=== PATIENT | male | born 1945 | race Caucasian/White ===

== ENCOUNTER → 2018-07-11 | Outpatient (CLI) | payer MEDICARE ==
--- NOTE | 2018-07-11 12:39 | CONS ---
CONSULTATION DATE OF SERVICE: 07/11/2018 This 73-year-old gentleman has been evaluated in sleep center for obstructive sleep apnea-hypopnea syndrome. HISTORY OF PRESENT ILLNESS/SLEEP WAKE EVALUATION: The patient had home sleep test about 2 years ago in another institution. According to family, apnea-hypopnea index was in the range of 7 and he was not recommended to start CPAP therapy at that time. Presently, patient continued to have loud snoring and has multiple awakenings from sleep up to 3 times with once of nocturia. Sometimes he sleeps with open mouth. His usual sleep schedule from midnight until 8 a.m. on weekdays and on weekends from around 1 a.m. until 8 a.m. Sometimes he has problem with falling asleep, but not more than for 30 minutes. Usually he sleeps on the side and during the night, moving from one site to another site. [place] Sleepiness Scale is 6. PAST MEDICAL HISTORY: Positive for coronary artery disease, status post heart attack in 1996, hypertension, hyperlipidemia, slightly enlargement prostate, history of peptic ulcer disease at the age of 19, no recurrence. PAST SURGICAL HISTORY: Stent insertion in 2007, tonsillectomy, umbilical hernia. MEDICATIONS: Metoprolol, lisinopril, isosorbide, finasteride, Zetia, atorvastatin, terazosin, Xarelto. SOCIAL HISTORY: Negative for smoking, presently no using any alcohol. FAMILY HISTORY: Hypertension, angina, heart problems, hyperlipidemia, arthritis, asthma, ulcers. REVIEW OF SYSTEMS: Loud snoring, swelling of the legs. PHYSICAL EXAMINATION: During physical, gentleman without distress. VITAL SIGNS: BP 137/91, HR 58, RR 16, height 5 feet 10 inches, weight 251.8, a body mass index 38.7, temperature 97.9 oxygen saturation on room air 94%. HEENT: PERRLA, EOMI. Oropharynx extremely low position of soft palate. Mallampati 3. Wide neck 18-1/4 inches in circumference. ABDOMEN: Obese. EXTREMITIES: 1+ bilateral edema. HEART: Systolic murmur more on the aorta with maximal . IMPRESSION: 1. Snoring, awakenings from sleep, extremely low position of soft palate, wide neck, obesity, obstructive sleep apnea by results of home sleep test about 2 years ago, obstructive sleep apnea-hypopnea syndrome. 2. Obesity, BMI 38.7. 3. Coronary artery disease, status post myocardial infarction in 1996, status post stent insertion in 2007. 4. Status post tonsillectomy. 5. Status post umbilical hernia. 6. History of peptic ulcer disease at age of 19 without very recurrence. PLAN: 1. Polysomnography for evaluation of patient's breathing during sleep. 2. CPAP/BiPAP titration if sleep study confirms obstructive sleep apnea-hypopnea syndrome. 3. Preferable position during sleep on the side. 4. No driving if patient feels any sleepiness. 5. I will see patient for follow up visit to explain results of testing and following plan. Thank you very much for referring this patient for consultation. Sincerely, Regino Etienne MD, PhD, FAASM Diplomat of [place] [employer] [employer] [facility] [place] MMMARIVELL / KRISTINA: [id number] /
== END | disposition home or self-care (01) ==
LOC: SLEEP 09:57
PROVIDERS: ATTEND Internal Medicine
DX: G47.33 Obstructive sleep apnea (adult) (pediatric) (principal); I25.10 Atherosclerotic heart disease of native coronary artery without angina pectoris; I25.2 Old myocardial infarction; I10 Essential (primary) hypertension; E78.5 Hyperlipidemia, unspecified; E66.9 Obesity, unspecified; Z68.38 Body mass index [BMI] 38.0-38.9, adult; Z95.5 Presence of coronary angioplasty implant and graft; Z79.899 Other long term (current) drug therapy; Z79.01 Long term (current) use of anticoagulants; Z90.89 Acquired absence of other organs; Z98.890 Other specified postprocedural states
CPT/HCPCS: 99211

== ENCOUNTER 2018-07-25 07:07 | Day surgery (SDC) | payer MEDICARE ==
[2018-07-19 09:53] VITALS: BMI 37.2
[~2018-07-25 07:07] MED LIST: LACTATED RINGERS 1,000 ML IV SCH; LIDOCAINE 1% 20 ML VIAL (10MG/ML) FOR IV START INTRADERMA PRN
[2018-07-25] MEDS ORDERED: LACTATED RINGERS 1,000 ML IV ONE (07:37)
[2018-07-25 07:52] VITALS: TEMP 98.5
[2018-07-25] MEDS ORDERED: PROPOFOL 10 MG/ML 20 ML VIAL IV ONE (07:57)
--- NOTE | 2018-07-25 07:59 | P.GSHP ---
History of Present Illness H&P Date: 07/25/18 Chief Complaint: Colon cancer screening Patient is here today for colonoscopy. Last colonoscopy approximately 12 years ago. No bowel related complaints. Facesheet says anemia however the patient denies. No family history of colon cancer. Past Medical History Past Medical History: Asthma, Coronary Artery Disease (CAD), Heart Failure, GERD /Reflux, Hyperlipidemia, Myocardial Infarction ([place]), Osteoarthritis ([place]) Additional Past Medical History / Comment(s): edema left leg, childhood asthma, hx ulcer, Last Myocardial Infarction Date:: 1996 History of Any Multi-Drug Resistant Organisms: None Reported Past Surgical History: Ear Surgery, Heart Catheterization, Heart Catheterization With Stent, Hernia Repair, Tonsillectomy Additional Past Surgical History / Comment(s): one cardiac stent, tube in left ear Past Anesthesia/Blood Transfusion Reactions: No Reported Reaction Date of Last Stent Placement:: 2007 Smoking Status: Never smoker - Past Family History Father Additional Family Medical History / Comment(s): massive heart attacks at age 67 Mother Family Medical History: No Reported History Medications and Allergies Home Medications Medication Instructions Recorded Confirmed Type Aspirin EC [Ecotrin Low Dose] 81 mg PO DAILY 04/26/16 07/25/18 History Atorvastatin [Lipitor] 80 mg PO HS 04/26/16 07/25/18 History Ezetimibe [Zetia] 10 mg PO HS 04/26/16 07/25/18 History Finasteride [Proscar] 5 mg PO DAILY 04/26/16 07/25/18 History Isosorbide Mononitrate ER [Imdur] 30 mg PO DAILY 04/26/16 07/25/18 History Lisinopril [Zestril] 5 mg PO DAILY 04/26/16 07/25/18 History Metoprolol Succinate [Toprol XL] 25 mg PO DAILY 04/26/16 07/25/18 History Multivitamins, Thera [Multivitamin] 1 tab PO DAILY 04/26/16 07/25/18 History Rivaroxaban [Xarelto] 20 mg PO HS 04/26/16 07/25/18 History Terazosin HCl 5 mg PO HS 04/26/16 07/25/18 History Allergies Allergy/AdvReac Type Severity Reaction Status Date / Time No Known Allergies Allergy Verified 07/25/18 07:44 Surgical - Exam Vital Signs Temp Pulse Resp BP Pulse Ox 98.5 F 65 16 133/78 95 07/25/18 07:50 07/25/18 07:50 07/25/18 07:50 07/25/18 07:50 07/25/18 07:50 Physical exam: General: Well-developed, well-nourished HEENT: Normocephalic, sclerae nonicteric Abdomen: Nontender, nondistended Extremities: No edema Neuro: Alert and oriented Assessment and Plan (1) Colon cancer screening Narrative/Plan: Will proceed with colonoscopy at this time. Current Visit: Yes Status: Acute Code(s): Z12.11 - ENCOUNTER FOR SCREENING FOR MALIGNANT NEOPLASM OF COLON SNOMED Code(s): 837540201
--- NOTE | 2018-07-25 08:13 | P.PCN ---
Date of Procedure: 07/25/18 Procedure(s) Performed: PREOPERATIVE DIAGNOSIS: Colon cancer screening POSTOPERATIVE DIAGNOSIS: Normal exam PROCEDURE: Colonoscopy ANESTHESIA: MAC SURGEON: Salbador Saxena M.D. SPECIMENS: None ENDOSCOPIC PROCEDURE: The patient was placed on the endoscopy table in the left decubitus position. The Olympus colonoscope was inserted into the anus and passed under direct visualization to the base of the cecum. The appendiceal orifice was visualized. From that point the scope was slowly withdrawn inspecting all surfaces carefully. There were no neoplastic inflammatory or polypoid lesions throughout the cecum, ascending, transverse, descending, sigmoid and rectum. There was no diverticulosis noted. Digital rectal examination was normal. The patient was taken to the recovery room in stable condition per anesthesia guidelines. RECOMMENDATIONS: Increase fiber. Follow-up colonoscopy in 10 years.
[2018-07-25 08:36] VITALS: BP 115/72; PULSE 50; RESP 18
== END 2018-07-25 09:16 | disposition home or self-care (01) ==
LOC: ORWHC2ENDO 07:07
PROVIDERS: ATTEND Surgery
DX: Z12.11 Encounter for screening for malignant neoplasm of colon (principal); J45.909 Unspecified asthma, uncomplicated; I25.10 Atherosclerotic heart disease of native coronary artery without angina pectoris; I50.9 Heart failure, unspecified; K21.9 Gastro-esophageal reflux disease without esophagitis; E78.5 Hyperlipidemia, unspecified; I25.2 Old myocardial infarction; M19.90 Unspecified osteoarthritis, unspecified site; Z95.5 Presence of coronary angioplasty implant and graft; Z79.01 Long term (current) use of anticoagulants; Z79.82 Long term (current) use of aspirin; Z79.899 Other long term (current) drug therapy
CPT/HCPCS: J2704; G0121

== ENCOUNTER → 2018-12-05 | Outpatient (CLI) | payer MEDICARE ==
--- NOTE | 2018-12-05 16:52 | PN ---
PROGRESS NOTE DATE OF SERVICE: 12/05/2018 This patient is a 73-year-old gentleman who has been followed in the sleep center for treatment of obstructive sleep apnea-hypopnea syndrome. Recently the patient had a diagnostic polysomnogram which showed severe sleep apnea and then had CPAP titration when patient's respiration was controlled with CPAP. I discussed results of the sleep studies with the patient in detail. Subsequently patient was started on treatment with CPAP and he is able to use equipment every night without significant problems related to mask fitting, pressure or humidification. [place] Sleepiness Scale today is 5, which is normal. I checked the recording from patient's CPAP unit. Usage is 87% of the nights for more than 4 hours. Average usage is 6 hours 26 minutes per night. The machine is in automatic regimen with a level of pressure between 7 and 13; 95th percentile of the pressure is 11.5 cm of water. Apnea-hypopnea index is only 1.3, which is absolutely perfect. MEDICATIONS: 1. Metoprolol. 2. Lisinopril. 3. Isosorbide. 4. Finasteride. 5. Zetia. 6. Atorvastatin. 7. Terazosin. 8. Xarelto. PHYSICAL EXAMINATION: GENERAL: A pleasant patient in no distress. VITAL SIGNS: BP 118/59, HR 62, RR 16, weight 242.8 pounds, temperature 98.1. HEENT: PERRLA, EOMI. Evaluation of oropharynx showed tongue protrudes midline. Extremely low position of soft palate. Mallampati IV. NECK: Supple. No JVD. Thyroid is not palpable. LUNGS: Clear to percussion and to auscultation. Good air exchange. No wheezing or rhonchi. HEART: S1, S2 regular. No murmurs, gallops or rubs. ABDOMEN: Obese. EXTREMITIES: No clubbing or cyanosis. UPKEEP MECHANIC: Awake, alert, and oriented X3. Cranial nerves 2 to 7 intact. There is no fasciculation or atrophy. noted. No focal deficits observed. IMPRESSION: 1. Severe obstructive sleep apnea-hypopnea syndrome; apnea-hypopnea index 35.4 with oxygen desaturation to 85%, under full control with CPAP. The patient demonstrated close to 100% compliance with treatment. 2. Obesity. 3. Coronary artery disease, status post heart attack in 1996, status post stent insertion in 2007. 4. Status post tonsillectomy. 5. Status post umbilical hernia. 6. History of peptic ulcer disease in the past. PLAN: 1. Patient will continue to use CPAP equipment every night for the whole night. 2. Losing weight. 3. Sleep hygiene with regular time in bed for at least 8 hours. 4. No driving if feeling any sleepiness. 5. We will maintain all necessary prescriptions for CPAP supplies. Thank you very much for allowing me to participate in management of your patient. Sincerely, Regino Etienne MD, PhD, FAASM Diplomat of [place] [employer] [place] [employer] [facility] [place] MMODL / IJN: [id number] /
== END ==
LOC: SLEEP 15:33
PROVIDERS: ATTEND Internal Medicine
DX: G47.33 Obstructive sleep apnea (adult) (pediatric) (principal); E66.9 Obesity, unspecified; I25.10 Atherosclerotic heart disease of native coronary artery without angina pectoris; Z95.5 Presence of coronary angioplasty implant and graft; Z86.79 Personal history of other diseases of the circulatory system; Z90.89 Acquired absence of other organs; Z99.89 Dependence on other enabling machines and devices; Z98.890 Other specified postprocedural states; Z79.899 Other long term (current) drug therapy; Z79.01 Long term (current) use of anticoagulants

== ENCOUNTER → 2019-10-23 | Outpatient (CLI) | payer MEDICARE ==
[2019-10-23 18:05] LABS: ALT 30 U/L (10-49); AST 30 U/L (14-35); Cholesterol 139 mg/dL (0-200); Triglycerides <50.0 mg/dL (0.0-149.0)
== END | disposition home or self-care (01) ==
LOC: LABWHC1 10:20
PROVIDERS: ATTEND Nurse Practitioner Adult Health
DX: E78.2 Mixed hyperlipidemia (principal)
CPT/HCPCS: 36415; 80061; 84450; 84460

== ENCOUNTER → 2019-11-21 | Outpatient (CLI) | payer MEDICARE ==
[2019-11-21 13:14] LABS: HCT 38.6 % (39.0-53.0); HGB 12.9 gm/dL (13.0-17.5); MCHC 33.4 g/dL (31.0-37.0); MCV 92.6 fL (80.0-100.0); Mean Platelet Volume 7.4; Platelet Count 192 k/uL (150-450); RBC 4.17 m/uL (4.30-5.90); RDW 13.7 % (11.5-15.5); WBC 5.5 k/uL (3.8-10.6)
[2019-11-21 13:26] LABS: Appearance,Urine Clear (Clear); Bilirubin,Urine Negative (Negative); Blood,Urine Negative (Negative); Color,Urine Yellow; Glucose,Urine (UA) Negative (Negative); Ketones,Urine Negative (Negative); Leukocyte Esterase,Urine Negative (Negative); Nitrite,Urine Negative (Negative); Protein,Urine Negative (Negative); Specific Gravity,Urine 1.025 (1.001-1.035); Urobilinogen,Urine <2.0 mg/dL (<2.0)
[2019-11-21 18:34] LABS: African American GFR (CKD) 84.4 (60.0-200.0); Albumin 4.1 g/dL (3.80-4.90); Albumin/Globulin Ratio 2.05 (1.60-3.17); Anion Gap 6.8 mmol/L (4.00-12.00); Carbon Dioxide 24.2 mmol/L (21.6-31.8); Non-African American GFR(CKD) 72.8 (60.0-200.0); Total Bilirubin 0.8 mg/dL (0.2-1.2); Total Protein 6.1 g/dL (6.2-8.2)
[2019-11-21 19:40] LABS: Hemoglobin A1C 6.1 % (4.0-6.0)
== END | disposition home or self-care (01) ==
LOC: LABWHC1 12:23
PROVIDERS: ATTEND Family Medicine
DX: I25.10 Atherosclerotic heart disease of native coronary artery without angina pectoris (principal); I10 Essential (primary) hypertension; N40.0 Benign prostatic hyperplasia without lower urinary tract symptoms; E78.5 Hyperlipidemia, unspecified
CPT/HCPCS: 36415; 80053; 81003; 82550; 83036; 84153; 85027

== ENCOUNTER 2019-11-26 05:51 | Day surgery (SDC) | payer MEDICARE ==
[2019-11-18 13:03] VITALS: BMI 36.1
[2019-11-26] MEDS ORDERED: ALPRAZolam 0.25 MG TAB PO PRN (05:56)
[2019-11-26] MEDS ORDERED: SODIUM CHLORIDE 0.9% 1,000 ML in EMPTY BAG 1 BAG IV ONE (05:56)
[2019-11-26] MEDS ORDERED: ALPRAZolam 0.5 MG TAB PO PRN (05:56)
[2019-11-26] MEDS ORDERED: NITROGLYCERIN SL TABS 0.4 MG TAB SUBLINGUAL PRN (05:56)
[2019-11-26 06:15] VITALS: TEMP 98.2
[2019-11-26] MEDS ORDERED: fentaNYL (PF) 50 MCG/ML 2 ML AMP ONE (06:51)
[2019-11-26] MEDS ORDERED: ATORVASTATIN 80 MG TAB PO ONE (07:00)
[2019-11-26] MEDS ORDERED: ASPIRIN 325 MG TAB PO ONE (07:00)
[2019-11-26] MEDS ORDERED: fentaNYL (PF) 50 MCG/ML 2 ML AMP IVP ONE (07:06)
[2019-11-26] MEDS ORDERED: MIDAZOLAM 2 MG/2 ML VIAL IVP ONE (07:06)
[2019-11-26] MEDS ORDERED: BENZOCAINE SPRAY 1 CAN TOPICAL ONE (07:06)
[2019-11-26] MEDS ORDERED: LIDOCAINE 1% INJ 10MG/ML (20 ML MDV) ONE ×2 (07:18→08:28)
[2019-11-26] MEDS ORDERED: SODIUM CHLORIDE 0.9% 1,000 ML IV ONE (07:20)
[2019-11-26] MEDS ORDERED: VERAPAMIL 2.5 MG/ML 2 ML AMP ONE (07:33)
[2019-11-26] MEDS ORDERED: HEPARIN SODIUM 1,000 UN/ML (10ML VL) ONE (07:33)
[2019-11-26] MEDS ORDERED: LIDOCAINE 1% INJ 10MG/ML (20 ML MDV) SQ ONE ×2 (07:48→08:32)
[2019-11-26] MEDS ORDERED: VERAPAMIL SYRINGE (5 MG/10 ML) INTRAARTER ONE (07:51)
[2019-11-26] MEDS ORDERED: HEPARIN SODIUM 1,000 UN/ML (10ML VL) IV ONE (08:00)
--- NOTE | 2019-11-26 08:51 | ECHOT ---
TRANSESOPHAGEAL ECHOCARDIOGRAM INDICATION: Evaluation of aortic valve. PROCEDURE: After explaining the procedure to the patient, its risks and the complications, his blood pressure, heart rate, O2 saturation was monitored. The throat was sprayed with Cetacaine. He received 2 mg intravenous Versed, 50 mcg intravenous fentanyl. The probe was introduced in the esophagus without difficulty images were obtained. Following that, the probe was removed. FINDINGS: Left atrial size is dilated. Left atrial appendage is normal. Left ventricular size is normal. The ejection fraction is 50% to 55% with no clear segmental wall motion abnormality. The aortic valve is a tricuspid valve heavily calcified. By planimetry the valve area is between 1.2 and 1.5 centimeter square. Mitral valve revealed mild mitral anulus calcification. Tricuspid valve is normal. Descending thoracic aorta appears to be normal. No pericardial effusion was noted. Contrast bubble study revealed no evidence of shunting across the interatrial septum. Doppler pulse wave and color Doppler obtained and revealed mild to moderate mitral with mild aortic and tricuspid regurgitation. The peak gradient across the aortic valve was 55 mmHg with a mean of 33 mmHg. There was no shunting by color Doppler study. CONCLUSION: 1. Dilated left atrium with normal appearance of left atrial appendage. 2. Normal left ventricular size with ejection fraction of 50% to 55%. 3. Tricuspid aortic valve with moderate aortic stenosis and a mean gradient 33 mmHg. 4. Mild to moderate mitral with mild aortic and tricuspid regurgitation. 5. No shunting across the interatrial septum. 6. Normal appearance of the descending thoracic aorta. MMODL / IJN: [id number] /
[2019-11-26] MEDS ORDERED: IOPAMIDOL-370 125ML BTL INJ ONE (09:06)
[2019-11-26] MEDS ORDERED: RX INFO: IV CONTRAST WAS GIVEN 1 EACH MISC MISCELLANE PRN (09:21)
[2019-11-26] MEDS ORDERED: SODIUM CHLORIDE 0.9% 1,000 ML IV SCH (09:30)
--- NOTE | 2019-11-26 09:45 | CC ---
CARDIAC CATHETERIZATION REPORT Mr. David is a 74-year-old male with known history of coronary artery disease, hypertension, hyperlipidemia, prior percutaneous revascularization and ectatic vessel, who has been complaining of episode of progressive chest discomfort with physical activity. In view of that, recommendation made regarding cardiac catheterization, the procedures, risks, and complications were discussed with the patient who is in full understanding and agreement. 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 Using Xylocaine anesthesia and Seldinger technique, a 6-Honduran sheath was introduced in the right radial artery. Using a guidewire exchange technique, the intravenous catheter in the brachial area was exchanged to a 6-Honduran sheath, attempt to advance a [place] catheter in the superior vena cava were unsuccessful. At that point, the catheter was removed and selective right coronary angiography performed using 5-Honduran 3.5 bend right Amos catheter. Multiple attempts to cannulate the left main using multiple catheters were unsuccessful. At that point, using Xylocaine anesthesia and Seldinger technique, a 6-Honduran sheath was introduced in the right femoral artery and right coronary angiography was performed using 6-Honduran EBU 3.75 guiding catheter. After obtaining images of the coronary arteries including hemiaxial views, a 6-Honduran tight pigtail catheter introduced in the ascending aorta and LINDY view was performed. Following that, catheter and sheath were removed. Hemostasis was obtained with deployment of an Angio-Seal in the right femoral artery and compression of right radial artery with placement of a TR band. Of note, the patient received 5000 units of intravenous heparin as well as intra-arterial verapamil. There was no immediate complication. FINDINGS: FLUOROSCOPY: There was severe calcification involving the coronary arteries. LEFT MAIN: This is a large-sized vessel, bifurcating into left circumflex, left anterior descending artery. Left main coronary artery has no evidence of obstructive coronary artery disease. LEFT ANTERIOR DESCENDING ARTERY: This is a large-sized vessel reaching to the apex, tapers down distal third, giving rise to a large diagonal branch. The stented segment in the mid LAD is patent, has a 20% plaque proximal to the stented segment. There is an eccentric plaque of 30%. The rest of the vessel has no high-grade stenosis. LEFT CIRCUMFLEX: This is a small, nondominant vessel giving rise to one obtuse marginal branch that is subtotally occluded. The rest of the vessel has no high-grade stenosis. RIGHT CORONARY ARTERY: This is a large dominant vessel, bifurcating into PDA and posterolateral segment branches, diffusely calcified throughout the artery. The right coronary artery has diffuse intimal disease with ectatic vessel throughout the artery with area of stenosis up to 50%. AORTOGRAM: Aortogram was performed in the LINDY view and revealed a tricuspid aortic valve, calcified with 1+ aortic regurgitation. CONCLUSION: 1. Calcified coronary arteries. 2. 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 3. Patent stent of the left anterior descending artery with mild disease proximal to that. 4. Subtotally occluded small obtuse marginal branch. 5. Tricuspid aortic valve, calcified. RECOMMENDATION: Comparing the images of 2013, there is no significant progression and based on those findings, I recommend continue medical therapy with aggressive coronary risk modifications being initiated. Those findings and recommendation were discussed with the patient who is in full understanding and agreement. Duration of procedure is 80 minutes. MMODL / IJN: [id number] /
--- NOTE | 2019-11-26 09:51 | LTR ---
DATE OF SERVICE: 11/26/2019 RE: Yogesh David Dear Dr. Nazario; I had the pleasure to perform cardiac catheterization on Mr. David at [facility] on November 26, 2019 and a full copy of the procedure note will be forwarded to you. In brief, he was found to have mild to moderate triple-vessel coronary artery disease with severe ectatic right coronary artery and calcified coronary arteries. Those finding are unchanged compared to 2013 and based on those findings, I recommend continue medical therapy with aggressive coronary risk modifications being initiated and thank you again for allowing me to participate in his care. Please feel free to call for any questions. Sincerely yours, MD LAUREN EscotoL / HAWAN: [phone] /
[2019-11-26 14:17] VITALS: BP 120/58; PULSE 53; RESP 18
[2019-11-26] MEDS ORDERED: EZETIMIBE 10 MG TAB PO SCH (21:00)
[2019-11-26] MEDS ORDERED: ATORVASTATIN 80 MG TAB PO SCH (21:00)
[2019-11-26] MEDS ORDERED: TERAZOSIN HCL 5 MG PO SCH (21:00)
[2019-11-27] MEDS ORDERED: ASPIRIN 81 MG PO SCH (09:00)
[2019-11-27] MEDS ORDERED: MULTIVITAMINS, THERA 1 EACH TAB PO SCH (09:00)
[2019-11-27] MEDS ORDERED: FINASTERIDE 5 MG TAB PO SCH (09:00)
[2019-11-27] MEDS ORDERED: METOPROLOL SUCCINATE (ER) 25 MG TAB.ER.24H PO SCH (09:00)
[2019-11-27] MEDS ORDERED: LISINOPRIL 5 MG TAB PO SCH (09:00)
[2019-11-27] MEDS ORDERED: MONTELUKAST 10 MG TAB PO SCH (09:00)
[2019-11-27] MEDS ORDERED: ISOSORBIDE MONONITRATE ER 30 MG TAB.ER.24H PO SCH (09:00)
== END 2019-11-26 15:35 | disposition home or self-care (01) ==
LOC: CATHCVL 05:51
PROVIDERS: ATTEND Internal Medicine Interventional Cardiology
DX: I25.110 Atherosclerotic heart disease of native coronary artery with unstable angina pectoris (principal); I25.84 Coronary atherosclerosis due to calcified coronary lesion; I08.3 Combined rheumatic disorders of mitral, aortic and tricuspid valves; I72.8 Aneurysm of other specified arteries; I10 Essential (primary) hypertension; Z95.5 Presence of coronary angioplasty implant and graft; E78.2 Mixed hyperlipidemia; I48.0 Paroxysmal atrial fibrillation; Z79.01 Long term (current) use of anticoagulants; Z79.82 Long term (current) use of aspirin; Z79.899 Other long term (current) drug therapy
CPT/HCPCS: 93312; 93320; 93325; 93458; 93567; C1769 ×5; C1760; C1887 ×2; C1751; C1894 ×2; J2250; J2001; J3010; J1644; Q9967

== ENCOUNTER → 2020-04-01 | Outpatient (CLI) | payer MEDICARE ==
[2020-04-01 16:21] LABS: African American GFR (CKD) 84.4 (60.0-200.0); Albumin 3.9 g/dL (3.80-4.90); Albumin/Globulin Ratio 1.56 (1.60-3.17); Anion Gap 9.3 mmol/L (4.00-12.00); Calcium 9.1 mg/dL (8.7-10.3); Carbon Dioxide 26.7 mmol/L (21.6-31.8); Globulin 2.5 g/dL (1.6-3.3); Non-African American GFR(CKD) 72.8 (60.0-200.0); Potassium 4.2 mmol/L (3.5-5.5); Total Bilirubin 0.9 mg/dL (0.3-1.2); Total Protein 6.4 g/dL (6.2-8.2)
== END | disposition home or self-care (01) ==
LOC: LABWHC1 11:35
PROVIDERS: ATTEND Internal Medicine Interventional Cardiology
DX: E78.2 Mixed hyperlipidemia (principal)
CPT/HCPCS: 36415; 80053

== ENCOUNTER 2021-06-23 09:46 | Emergency (ER) | payer OTHER, MEDICARE ==
[2021-06-23 09:56] VITALS: RESP 18
[2021-06-23] MEDS ORDERED: ACETAMINOPHEN TAB 325 MG TAB PO STA (10:12)
--- NOTE | 2021-06-23 11:37 | XR ---
EXAMINATION TYPE: XR Hip Complete LT DATE OF EXAM: 06/23/2021 COMPARISON: None HISTORY: Fall down steps, pain TECHNIQUE: 2 view left hip FINDINGS: Femoral head articulates with the acetabulum. Joint space is preserved. No acute fracture o r dislocation is evident. Follow up exams can be performed 7-10 days from acute trauma for continued pain IMPRESSION: 1. Normal 2 view left hip
--- NOTE | 2021-06-23 11:39 | XR ---
EXAMINATION TYPE: XR knee 4V LT DATE OF EXAM: 06/23/2021 COMPARISON: None HISTORY: Fall down steps, pain TECHNIQUE: 4 view left knee FINDINGS: There is loss of the medial compartment joint space. Medial tibial plateau and femoral cond ylar spurring is present. No joint effusion is evident. No acute fractures are evident. Note is made of vascular calcification. IMPRESSION: 1. Moderate degenerative change predominantly within the medial compartment
--- NOTE | 2021-06-23 12:17 | US ---
EXAMINATION TYPE: US venous doppler duplex LE LT DATE OF EXAM: 06/23/2021 12:00 PM COMPARISON: NONE CLINICAL HISTORY: fall down step. pain in knee fell. SIDE PERFORMED: Left TECHNIQUE: The lower extremity deep venous system is examined utilizing real time linear array sonog christiano with graded compression, doppler sonography and color-flow sonography. VESSELS IMAGED: Common Femoral Vein Deep Femoral Vein Greater Saphenous Vein * Femoral Vein Popliteal Vein Small Saphenous Vein * Proximal Calf Veins (* superficial vessels) Left Leg: Negative for DVT Fluid visualized medial knee 1.8 x .9 x 1.1cm IMPRESSION: 1. Left lower extremity negative for deep venous thrombosis. 2. Small complex fluid medial knee the level of the patient's pain. This could be related to a small hematoma. Complex popliteal cyst could be considered. This can be further evaluated with MRI as koki thompson
[2021-06-23 12:18] VITALS: BP 113/66; PULSE 74; TEMP 97.9
--- NOTE | 2021-06-23 12:41 | ED ---
Fall HPI - General Chief Complaint: Fall Stated Complaint: Fall/Lt Knee Pain Time Seen by Provider: 06/23/21 09:57 Source: patient, RN notes reviewed Mode of arrival: ambulatory - History of Present Illness Initial Comments: Patient is a 75-year-old male that presents to emergency room complaining of left knee and hip pain after missing a 6 inch step. He notes that he did fall landing on his left hip. He notes that he can emergency room due to increased swelling and tenderness and fearful of a DVT. He was otherwise a well-appearing 75-year-old male. He does take xarelto. He denied any other issues or complaints at this time. He denied any chest pain shortness of breath headache nausea vomiting diarrhea constipation fever fatigue chills. - Related Data Home Medications Medication Instructions Recorded Confirmed Atorvastatin [Lipitor] 80 mg PO DAILY 04/26/16 06/23/21 Ezetimibe [Zetia] 10 mg PO DAILY 04/26/16 06/23/21 Finasteride [Proscar] 5 mg PO HS 04/26/16 06/23/21 Isosorbide Mononitrate ER [Imdur] 30 mg PO HS 04/26/16 06/23/21 Metoprolol Succinate [Toprol XL] 25 mg PO HS 04/26/16 06/23/21 Rivaroxaban [Xarelto] 20 mg PO DAILY 04/26/16 06/23/21 Terazosin HCl 5 mg PO DAILY 04/26/16 06/23/21 lisinopriL [Zestril] 5 mg PO HS 04/26/16 06/23/21 Montelukast [Singulair] 10 mg PO HS 11/18/19 06/23/21 Cholecalciferol [Vitamin D3 (25 25 mcg PO HS 06/23/21 06/23/21 Mcg = 1000 Iu)] Allergies Allergy/AdvReac Type Severity Reaction Status Date / Time No Known Allergies Allergy Verified 06/23/21 11:27 Review of Systems ROS Statement: Those systems with pertinent positive or pertinent negative responses have been documented in the HPI. ROS Other: All systems not noted in ROS Statement are negative. Past Medical History Past Medical History: Atrial Fibrillation, Chest Pain / Angina, Hyperlipidemia, Hypertension, Myocardial Infarction ([place]), Prostate Disorder Last Myocardial Infarction Date:: 1996 History of Any Multi-Drug Resistant Organisms: None Reported Past Surgical History: Heart Catheterization, Heart Catheterization With Stent, Hernia Repair, Tonsillectomy Past Anesthesia/Blood Transfusion Reactions: No Reported Reaction Date of Last Stent Placement:: 2007 Past Psychological History: No Psychological Hx Reported Smoking Status: Former smoker, Never smoker Past Alcohol Use History: None Reported Past Drug Use History: None Reported - Past Family History Father Additional Family Medical History / Comment(s): massive heart attacks at age 67 General Exam Limitations: no limitations General appearance: alert, in no apparent distress Head exam: Present: atraumatic, normocephalic, normal inspection Eye exam: Present: normal appearance, PERRL, EOMI. Absent: scleral icterus, conjunctival injection, periorbital swelling Neck exam: Present: normal inspection Respiratory exam: Present: normal lung sounds bilaterally. Absent: respiratory distress, wheezes, rales, rhonchi, stridor Cardiovascular Exam: Present: regular rate, normal rhythm, normal heart sounds. Absent: systolic murmur, diastolic murmur, rubs, gallop, clicks Extremities exam: Present: normal inspection, full ROM, normal capillary refill, other (Mild tenderness the medial aspect of the knee on palpation.). Absent: tenderness, pedal edema, joint swelling, calf tenderness Neurological exam: Present: alert, oriented X3 Psychiatric exam: Present: normal affect, normal mood Skin exam: Present: warm, dry, intact, normal color. Absent: rash Course Vital Signs 06/23/21 06/23/21 09:52 12:18 Temperature 98 F 97.9 F Pulse Rate 70 74 Respiratory 18 18 Rate Blood Pressure 128/73 113/66 O2 Sat by Pulse 97 95 Oximetry Medical Decision Making - Medical Decision Making 75-year-old male complaining of left knee and hip pain after missing a 6 inch step and falling. X-ray of the left knee, left hip ordered. Ultrasound of the left lower external ordered to rule out DVT. All imaging negative. Case discussed with Dr. Lackey, patient discharge home with conservative management and follow-up to primary care. - Radiology Data Radiology results: report reviewed, image reviewed Left lower extremity ultrasound: Negative for DVT. Small complex fluid medial knee the level of the patient's pain this could be related to a small hematoma. Complex popliteal cyst could be considered. Left knee x-ray: Moderate degenerative change predominantly within the medial compartment. Left hip x-ray: Normal 2 view left hip. Disposition Clinical Impression: Fall, Left knee sprain Disposition: HOME SELF-CARE Condition: Stable Instructions (If sedation given, give patient instructions): Fall Prevention for Older Adults (ED) Additional Instructions: Please return to the Emergency Department if symptoms worsen or any other concerns. Follow-up with primary care Extremities. Take Tylenol and Motrin as needed for pain. Use as tolerated. Rest ice compress elevate. Is patient prescribed a controlled substance at d/c from ED?: No Referrals: Divina Nazario MD [Primary Care Provider] - 1-2 days Time of Disposition: 12:41
== END 2021-06-23 12:48 | disposition home or self-care (01) ==
LOC: EC 09:46
DX: S83.92XA Sprain of unspecified site of left knee, initial encounter (principal); M25.552 Pain in left hip; I10 Essential (primary) hypertension; I48.91 Unspecified atrial fibrillation; E78.5 Hyperlipidemia, unspecified; I25.2 Old myocardial infarction; Z87.891 Personal history of nicotine dependence; Z79.01 Long term (current) use of anticoagulants; W10.9XXA Fall (on) (from) unspecified stairs and steps, initial encounter
CPT/HCPCS: 73502; 99284

== ENCOUNTER → 2021-08-23 | Outpatient (CLI) | payer MEDICARE ==
[2021-08-23 21:03] LABS: Chol/HDL Ratio 2.59 Ratio; HDL Cholesterol 51.8 mg/dL (40.00-60.00); LDL Cholesterol,Calculated 68.9 mg/dL (0.0-131.0); Triglycerides 66.7 mg/dL (0.00-149.00); VLDL Calculation 13.34 mg/dL (5.00-40.00)
[2021-08-24 07:48] LABS: African American GFR (CKD) 79.3 (60.0-200.0); Albumin 3.9 g/dL (3.8-4.9); Albumin/Globulin Ratio 1.56 (1.60-3.17); Anion Gap 12.3 mmol/L (4.00-12.00); BUN/Creat Ratio 21.25 Ratio (12.00-20.00); Blood Urea Nitrogen 22.1 mg/dL (9.0-27.0); Calcium 8.8 mg/dL (8.7-10.3); Carbon Dioxide 21.3 mmol/L (21.6-31.8); Globulin 2.5 g/dL (1.6-3.3); Non-African American GFR(CKD) 68.5 (60.0-200.0); Potassium 4.2 mmol/L (3.5-5.5); Total Bilirubin 0.7 mg/dL (0.30-1.20); Total Protein 6.4 g/dL (6.2-8.2)
== END | disposition home or self-care (01) ==
LOC: LABWHC1 10:54
PROVIDERS: ATTEND Internal Medicine Interventional Cardiology
DX: E78.2 Mixed hyperlipidemia (principal)
CPT/HCPCS: 36415; 80053; 80061

== ENCOUNTER → 2022-06-28 | Outpatient (CLI) | payer MEDICARE ==
[2022-06-28 16:23] LABS: ALT 21 U/L (10-49); AST 26 U/L (14-35); African American GFR (CKD) 79.3 (60.0-200.0); Albumin 3.8 g/dL (3.8-4.9); Albumin/Globulin Ratio 1.44 (1.60-3.17); Alkaline Phosphatase 76 U/L (41-126); BUN/Creat Ratio 26.63 Ratio (12.00-20.00); Blood Urea Nitrogen 27.7 mg/dL (9.0-27.0); Calcium 8.9 mg/dL (8.7-10.3); Carbon Dioxide 23.7 mmol/L (20.0-27.5); Chloride 103 mmol/L (96-109); Chol/HDL Ratio 2.63 Ratio; Globulin 2.6 g/dL (1.6-3.3); Glucose 124 mg/dL (70-110); Non-African American GFR(CKD) 68.5 (60.0-200.0); Potassium 4.3 mmol/L (3.5-5.5); Sodium 138 mmol/L (135-145); Total Protein 6.4 g/dL (6.2-8.2); VLDL Calculation 11.02 mg/dL (5.00-40.00)
== END | disposition home or self-care (01) ==
LOC: LABWHC1 09:04
PROVIDERS: ATTEND Internal Medicine Interventional Cardiology
DX: E78.2 Mixed hyperlipidemia (principal)
CPT/HCPCS: 36415; 80053; 80061

== ENCOUNTER → 2023-04-27 | Outpatient (CLI) | payer MEDICARE ==
--- NOTE | 2023-04-27 12:41 | P.SLEEP ---
History of Present Illness DATE: 04/27/2023 CONSULTATION/NEW PATIENT EVALUATION HISTORY OF PRESENT ILLNESS/SLEEP-WAKE EVALUATION: 77 year old gentleman had been evaluated in the sleep center for obstructive sleep apnea hypopnea syndrome. Last time I so patient in November 2018. Patient continued to use his CPAP equipment for all this years every night. Patient was not able to use equipment for last 2 months because his mask is broken.. I checked information from his machine. Out of Pap with the pressure 7-13, average pressure 10.5. Apnea-hypopnea index 0.7 which is normal. SLEEP SCHEDULE: Usually sleep schedule from midnight until 8 AM. FALLING ASLEEP: No problems with falling asleep, no TV in bedroom. DURING SLEEP: Snoring and episodes of stop breathing during the sleep without CPAP. No snoring on CPAP awakenings from sleep once with nocturia while on CPAP. No history of hypnogogical hallucinations, sleep paralysis, or cataplexy. DURING THE DAY/WAKE STATE: Patient denied any significant excessive daytime sleepiness. [place] sleepiness scale is 4. Patient may take 1 nap at afternoon time. PAST MEDICAL HISTORY: Coronary artery disease, status post OK in 1996, peptic ulcer disease in the past. PAST SURGICAL HISTORY: Tonsillectomy, umbilical hernia repair, status post stent insertion in 2007. MEDICATIONS: Lisinopril 5 mg once a day, atorvastatin 80 mg once a day, isosorbide 30 mg once a day, metoprolol 25 mg once a day, clopidogrel, Zetia, Xarelto. SOCIAL HISTORY: Negative for smoking or using alcohol presently. FAMILY HISTORY: Diabetes mellitus. REVIEW OF SYSTEMS: Snoring and episodes of stop breathing during the sleep while not on CPAP. No fevers. No double vision. No recent chest pain. No shortness of breath. No abdominal pain. No bleeding episodes. No blood in urine. No seizure episodes. PHYSICAL EXAMINATION: GENERAL: A pleasant patient without any distress. VITAL SIGNS: BP 132/71 , HR 62 , RR 16 , weight 241.2 pounds, height 5 foot 7 inches, body mass index 37.7, temperature 96.5, oxygen saturation at room air 98% . HEENT: PERRLA, EOMI. Evaluation of oropharynx showed tongue protrudes midline, low position of soft palate Mallampati 4. NECK: Supple. No JVD. Thyroid is not palpable. 18.5 inches in circumference. LUNGS: Clear to percussion and to auscultation. Good air exchange. No wheezing or rhonchi. HEART: S1, S2 regular. No murmurs, gallops or rubs. ABDOMEN: Soft and nontender. Bowel sounds are present. No organomegaly appreciated. Obese EXTREMITIES: No clubbing or cyanosis. 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 Cranial nerves 2 to 7 intact. There is no fasciculation or atrophy noted. No focal deficits observed. ASSESSMENT: 1. Obstructive sleep apnea hypopnea syndrome for many years, demonstrated good compliance with treatment, normal respiration on CPAP. 2. Obesity, BMI 37.7. 3. Coronary artery disease, status post OK in 1996 and stent insertions in 2007. 4. Status post tonsillectomy. 5 status post umbilical hernia repair. 6 . History of peptic ulcer disease in the past. PLAN: 1. Prescription full necessary CPAP supplies including fullface mask, heated tube, filters. 2. Patient will continue CPAP therapy every night for the whole night. 3. Preferable position during sleep on the side. 4. No driving if patient feels any sleepiness. Patient is aware of civil and criminal liability for unsafe driving. 5. Sleep hygiene with regular sleep time for at least 7.5-8 hours. 6. Watching and losing weight. 7 follow-up visit in 6 months, or earlier if patient has any problems. Thank you very much for referring this patient for consultation. Sincerely, Regino Etienne MD, PhD, FAASM. Diplomat of [place] [employer], Sleep Medicine Board by [place] [employer] [place] [employer] [facility] [place] Past Medical History Past Medical History: Atrial Fibrillation, Chest Pain / Angina, Hyperlipidemia, Hypertension, Myocardial Infarction (OK), Prostate Disorder Last Myocardial Infarction Date:: 1996 History of Any Multi-Drug Resistant Organisms: None Reported Past Surgical History: Heart Catheterization, Heart Catheterization With Stent, Hernia Repair, Tonsillectomy Past Anesthesia/Blood Transfusion Reactions: No Reported Reaction Date of Last Stent Placement:: 2007 Past Psychological History: No Psychological Hx Reported Smoking Status: Former smoker, Never smoker Past Alcohol Use History: None Reported Past Drug Use History: None Reported - Past Family History Father Additional Family Medical History / Comment(s): massive heart attacks at age 67 Medications and Allergies Home Medications Medication Instructions Recorded Confirmed Type Atorvastatin [Lipitor] 80 mg PO DAILY 04/26/16 06/23/21 History Ezetimibe [Zetia] 10 mg PO DAILY 04/26/16 06/23/21 History Finasteride [Proscar] 5 mg PO HS 04/26/16 06/23/21 History Isosorbide Mononitrate ER [Imdur] 30 mg PO HS 04/26/16 06/23/21 History Metoprolol Succinate [Toprol XL] 25 mg PO HS 04/26/16 06/23/21 History Rivaroxaban [Xarelto] 20 mg PO DAILY 04/26/16 06/23/21 History Terazosin HCl 5 mg PO DAILY 04/26/16 06/23/21 History lisinopriL [Zestril] 5 mg PO HS 04/26/16 06/23/21 History Montelukast [Singulair] 10 mg PO HS 11/18/19 06/23/21 History Cholecalciferol [Vitamin D3 (25 25 mcg PO HS 06/23/21 06/23/21 History Mcg = 1000 Iu)] Allergies Allergy/AdvReac Type Severity Reaction Status Date / Time No Known Allergies Allergy Verified 06/23/21 11:27 Sleep Note - Sleep Note Sleep Note: Temperature: Pulse Rate: Respiratory Rate: Blood Pressure: SpO2: Height: Weight: BMI: Neck Circumference:
== END ==
LOC: 3 N SLEEP 11:41
PROVIDERS: ATTEND Internal Medicine
DX: G47.33 Obstructive sleep apnea (adult) (pediatric) (principal); I25.10 Atherosclerotic heart disease of native coronary artery without angina pectoris; I25.2 Old myocardial infarction; N42.9 Disorder of prostate, unspecified; E66.9 Obesity, unspecified; E78.5 Hyperlipidemia, unspecified; I10 Essential (primary) hypertension; I48.91 Unspecified atrial fibrillation; Z68.37 Body mass index [BMI] 37.0-37.9, adult; Z99.89 Dependence on other enabling machines and devices; Z98.890 Other specified postprocedural states; Z87.11 Personal history of peptic ulcer disease; Z79.899 Other long term (current) drug therapy; Z87.891 Personal history of nicotine dependence
CPT/HCPCS: 99211

== ENCOUNTER → 2023-11-09 | Outpatient (CLI) | payer MEDICARE ==
--- NOTE | 2023-11-09 12:33 | P.PN ---
Subjective DATE: 11/09/2023 FOLLOW UP VISIT. Patient with obstructive sleep apnea hypopnea syndrome return to sleep center for follow-up visit. Information from previous visit have been reviewed. Patient is using PAP equipment every night for the whole night, getting PAP supplies in time. The patient does not have significant problems with the mask, PAP unit and humidification. [place] sleepiness scale is 8, which is in normal range. I checked information from PAP unit. PAP unit pressure 7-13, average 11.5 cm H2O. Usage is 93 % for more then 4 hours, average 6 hours per night. Leak is 9.8 l/m, which is in acceptable range. Apnea Hypopnea Index is 0.5, which is normal. MEDICATIONS:1. Lisinopril 5 mg once a day 2. Atorvastatin 80 mg once a day 3. Isosorbide 30 mg once a day 4. Metoprolol 25 mg once a day 5. Clopidogrel 6. Zetia 7. Jardiance During physical exam: GENERAL: A pleasant patient without any distress. VITAL SIGNS: BP 130/77, HR 97, RR 12 , weight 232.6, temperature 97.4, oxygen saturation at room air 97 % . HEENT: PERRLA, EOMI.low position of soft palate, Mallapati 4 . NECK: Supple. No JVD. LUNGS: Clear to percussion and to auscultation. Good air exchange. No wheezing or rhonchi. HEART: S1, S2 regular. ABDOMEN: Soft and nontender. Slightly obese EXTREMITIES: No clubbing or cyanosis. INVOICE MACHINE OPERATOR: Awake, alert, and oriented x3. No focal deficit. Impressions: 1. Obstructive sleep apnea-hypopnea syndrome. Patient demonstrated great compliance with treatment, benefiting from treatment. 2. Obesity, BMI 36.1, patient lost 9 pounds comparing with previous visit. 3. Coronary artery disease, status post [place] in 1996 and stent insertion in 2007. 4. Hypertension. 5. Hyperlipidemia. 6. Status post tonsillectomy. 7. Diabetes mellitus. 8. History of peptic ulcer disease in the past. 9. Status post umbilical hernia repair. Plan: 1. Continue using PAP equipment every night for the whole night. 2. To change air filter at least 1-2 times per month. 3. PAP unit should stay lower then position of the head. 4. Advised patient to remove all remaining water from humidifier canister daily and make it dry after each usage. Refill canister with fresh distilled water before each usage. 5. Sleep hygiene with regular time in bed for at least 8 hours. 6. Precautions related to driving. No driving if feel any sleepiness. 7. I will maintain prescription for PAP supplies including mask, tube, filters. 8. Follow up visit in 6 months or earlier if patient has any problems. 9. Watching and continue losing weight. Thank you very much for allowing me to participate in the management of your patient. Regino Etienne MD, PhD, FAASM. Diplomat of [place] [employer], Sleep Medicine Board by [place] [employer] [facility] [address] [place]
== END ==
LOC: 3 N SLEEP 11:05
PROVIDERS: ATTEND Internal Medicine
DX: G47.33 Obstructive sleep apnea (adult) (pediatric) (principal); E11.9 Type 2 diabetes mellitus without complications; E66.9 Obesity, unspecified; E78.5 Hyperlipidemia, unspecified; I10 Essential (primary) hypertension; I25.10 Atherosclerotic heart disease of native coronary artery without angina pectoris; I25.2 Old myocardial infarction; Z68.36 Body mass index [BMI] 36.0-36.9, adult; Z79.899 Other long term (current) drug therapy; Z87.11 Personal history of peptic ulcer disease; Z99.89 Dependence on other enabling machines and devices; Z98.890 Other specified postprocedural states; Z90.89 Acquired absence of other organs; Z95.5 Presence of coronary angioplasty implant and graft; Z79.84 Long term (current) use of oral hypoglycemic drugs; Z79.02 Long term (current) use of antithrombotics/antiplatelets
CPT/HCPCS: 99212

== ENCOUNTER → 2024-07-04 | Outpatient (CLI) | payer MEDICARE | LOC: 3 N SLEEP 10:40 | PROVIDERS: ATTEND Internal Medicine | CPT/HCPCS: 99212 ==